=== PATIENT | female | born 1980 | race Caucasian/White ===

== ENCOUNTER 2018-12-13 13:06 | Emergency (ER) | payer BC, MEDICAID ==
[~2018-12-13] VITALS: Ht 167.6 cm; Wt 117.0 kg
[2018-12-13 13:57] LABS: Basophils # (auto) 0 uL; Basophils % (auto) 0.4 % (0.0-2.0); Eosinophils # (auto) 0 uL; Eosinophils % (auto) 0.4 % (0.0-7.0); Hematocrit 41.9 % (36.0-46.0); Hemoglobin 14.4 g/dL (12.2-16.2); Lymphocytes # (auto) 2.9 uL; Lymphocytes % (auto) 37.5 % (10.0-50.0); Mean Corpuscular Hemoglobin 31.2 pg (28.0-32.0); Mean Corpuscular Hgb Conc. 34.3 g/dL (32.0-36.0); Monocytes # (auto) 0.5 uL; Monocytes % (auto) 6.3 % (0.0-12.0); Neutrophils # (auto) 4.3 uL; Neutrophils % (auto) 55.4 % (37.0-80.0); Platelet Count (auto) 183 10^3/uL (140-450); White Blood Cell 7.8 10^3/uL (4.4-10.8)
[2018-12-13 14:08] LABS: INR < 0.93 (0.9-1.15); Partial Thromboplastin Time 25.7 sec (23.64-32.05)
[2018-12-13 14:21] LABS: Albumin 3.5 g/dL (3.4-5.0); Anion Gap 7 (5-15); Blood Urea Nitrogen 11 mg/dL (7-18); Calcium 8.5 mg/dL (8.5-10.1); Carbon Dioxide 24 mmol/L (21-32); Chloride 108 mmol/L (98-107); Glucose 87 mg/dL (74-106); Potassium 3.7 mmol/L (3.5-5.1); Sodium 139 mmol/L (136-145)
[2018-12-13 14:23] LABS: Alanine Aminotransferase 27 U/L (13-56); Aspartate Aminotransferase 23 U/L (15-37); BUN/Creatinine Ratio 15.3; GFR African American 117 mL/min; GFR Non-African American 96 mL/min
[2018-12-13 14:28] LABS: Alkaline Phosphatase 66 U/L (45-117); Bilirubin, Total 0.3 mg/dL (0.2-1.0)
[2018-12-13 15:45] VITALS: BP 134/62
== END 2018-12-13 15:50 | disposition home or self-care (01) ==
LOC: ER 13:13
DX: R07.89 Other chest pain (principal)
CPT/HCPCS: 36415; 71046; 80053; 83880; 84484; 85025; 85610; 85730; 93005